=== PATIENT | female | born 1945 | race Caucasian/White ===

== ENCOUNTER → 2017-04-27 | Outpatient (CLI) | payer MEDICARE, OTHER ==
[~2017-04-27] MED LIST: NAPR-58 PO
== END | disposition home or self-care (01) ==
LOC: RADPV 10:54
PROVIDERS: ATTEND Podiatrist
DX: M19.071 Primary osteoarthritis, right ankle and foot (principal); M25.871 Other specified joint disorders, right ankle and foot; M21.41 Flat foot [pes planus] (acquired), right foot